=== PATIENT | male | born 1940 | race African-American/Black ===

== ENCOUNTER 2019-01-21 20:53 | Emergency (ER) | payer BC ==
[~2019-01-21] VITALS: Ht 185.4 cm; Wt 108.9 kg
[2019-01-21 21:10] VITALS: BP_SYST 164
[2019-01-21] MEDS ORDERED: traMADol HCL HCL 50 MG TABLET (ULTRAM) PO ONE (21:30)
[2019-01-21] MEDS ORDERED: CLINDAMYCIN HCL 150 MG CAPSULE PO ONE (23:00)
[2019-01-21 23:06] VITALS: BP_SYST 148
== END 2019-01-21 23:06 | disposition home or self-care (01) ==
LOC: SED 20:53
DX: S02.19XA Other fracture of base of skull, initial encounter for closed fracture (principal); E11.9 Type 2 diabetes mellitus without complications; I10 Essential (primary) hypertension; Z88.6 Allergy status to analgesic agent; W19.XXXA Unspecified fall, initial encounter; Y93.89 Activity, other specified; Y92.89 Other specified places as the place of occurrence of the external cause; Y99.8 Other external cause status
CPT/HCPCS: 70486-TC; 99284